=== PATIENT | female | born 1940 | race Caucasian/White ===

== ENCOUNTER 2016-02-28 15:51 | Inpatient (IN) | payer MEDICARE, BC ==
[~2016-02-28] VITALS: Ht 160 cm; Wt 47.0 kg
[2016-02-28] MEDS ORDERED: METHYLPRED SOD SUCC 125 MG/2 ML VIAL ONE (17:22)
[2016-02-28] MEDS ORDERED: DUONEB INH ONE ×3 (17:34)
[2016-02-28] MEDS ORDERED: SODIUM CHLORIDE 0.9% 100 ML IV ONE (19:14)
[2016-02-28] MEDS ORDERED: CEFTRIAXONE 1 GM VIAL ONE (19:14)
[2016-02-28] MEDS ORDERED: ONDANSETRON 4 MG VIAL IV PUSH PRN (20:30)
[2016-02-28] MEDS ORDERED: ACETAMINOPHEN 325 MG TAB PO PRN (20:30)
[2016-02-28 21:31] VITALS: BP_SYST 146; RESP 18; TEMP 98.5; Ht 160 cm; Wt 47.0 kg
[2016-02-28] MEDS: DUONEB INH SCH (23:10)
[2016-02-28 23:13] VITALS: RESP 18
[2016-02-29] MEDS: METHYLPRED SOD SUCC 125 MG/2 ML VIAL IV SCH ×4 (00:13→23:58)
[2016-02-29] MEDS: DUONEB INH SCH ×6 (02:07→22:33)
[2016-02-29] MEDS: ALPRAZOLAM 0.25 MG TAB PO PRN ×2 (02:25→21:27)
[2016-02-29 03:56] VITALS: BP_SYST 117; RESP 18; TEMP 97.7
[2016-02-29 08:20] VITALS: BP_SYST 133; RESP 18; TEMP 97.6
[2016-02-29] MEDS ORDERED: MISSING DOSE XX ONE (08:30)
[2016-02-29] MEDS: CEFTRIAXONE 1 GM in SODIUM CHLORIDE 0.9% 50 ML IV SCH (09:22)
[2016-02-29] MEDS ORDERED: TRAMADOL 50 MG TAB PO PRN (11:45)
[2016-02-29] MEDS: clonazePAM 0.5 MG TAB PO SCH ×2 (12:20→21:28)
[2016-02-29] MEDS: FEXOFENADINE 180 MG TAB PO SCH (12:20)
[2016-02-29] MEDS: BISOPROLOL 5 MG TAB PO SCH (12:20)
[2016-02-29 12:24] VITALS: BP_SYST 140; RESP 18; TEMP 97.7
[2016-02-29 16:41] VITALS: BP_SYST 113; RESP 18; TEMP 97.8
[2016-02-29 19:56] VITALS: BP_SYST 129; RESP 18; TEMP 97.7
[2016-02-29] MEDS: PANTOPRAZOLE 20 MG TAB PO SCH (21:28)
[2016-02-29 22:46] VITALS: BP_SYST 103; RESP 20; TEMP 97.6
[2016-03-01] VITALS (10 sets, daily range): BP systolic 89–125; RESP 14–28; TEMP 98–98.9
[2016-03-01] MEDS: DUONEB INH SCH ×4 (02:40→15:04)
[2016-03-01] MEDS: CEFTRIAXONE 1 GM in SODIUM CHLORIDE 0.9% 50 ML IV SCH (09:03)
[2016-03-01] MEDS: FEXOFENADINE 180 MG TAB PO SCH (09:03)
[2016-03-01] MEDS: METHYLPRED SOD SUCC 125 MG/2 ML VIAL IV SCH ×2 (09:03→20:40)
[2016-03-01] MEDS: BISOPROLOL 5 MG TAB PO SCH (09:03)
[2016-03-01] MEDS: clonazePAM 0.5 MG TAB PO SCH (09:03)
[2016-03-01] MEDS ORDERED: Furosemide 40 MG/4 ML VIAL IV ONE (11:20)
[2016-03-01] MEDS ORDERED: LORAZEPAM 2 MG/ML VIAL IV ONE (13:45)
[2016-03-01] MEDS: ALPRAZOLAM 0.25 MG TAB PO SCH (17:13)
[2016-03-01] MEDS: AZITHROMYCIN 500 MG in SODIUM CHLORIDE 0.9% 250 ML IV SCH (18:02)
[2016-03-01] MEDS: NEB-BROVANA 15 MCG/2 ML INH SCH (19:38)
[2016-03-01] MEDS: NEB-BUDESONIDE 0.5 MG INH SCH (19:39)
[2016-03-01] MEDS: NEB-XOPENEX 0.63 MG/3 ML INH SCH ×2 (19:39→22:55)
[2016-03-01] MEDS: PANTOPRAZOLE 20 MG TAB PO SCH (20:32)
[2016-03-01] MEDS: LORAZEPAM 2 MG/ML VIAL IV PRN (20:36)
[2016-03-01] MEDS ORDERED: THEOPHYLLINE 100 MG PO SCH (21:00)
[2016-03-02] VITALS (7 sets, daily range): BP systolic 126–157; RESP 20–23; TEMP 97–98.7
[2016-03-02] MEDS: ALPRAZOLAM 0.25 MG TAB PO SCH ×4 (00:41→20:58)
[2016-03-02] MEDS ORDERED: SALINE FLUSH 10 ML FLUSH PRN (05:50)
[2016-03-02] MEDS: SODIUM CHLORIDE 0.9% FLUSH BAG 500 ML IV SCH (05:53)
[2016-03-02] MEDS: MODAFINIL 100 MG TAB PO SCH ×2 (05:54→12:08)
[2016-03-02] MEDS: LORAZEPAM 2 MG/ML VIAL IV PRN (06:40)
[2016-03-02] MEDS: NEB-XOPENEX 0.63 MG/3 ML INH SCH ×5 (07:01→23:23)
[2016-03-02] MEDS: NEB-BROVANA 15 MCG/2 ML INH SCH ×2 (07:02→18:08)
[2016-03-02] MEDS: NEB-BUDESONIDE 0.5 MG INH SCH ×2 (07:02→18:08)
[2016-03-02] MEDS ORDERED: MISSING DOSE XX ONE (08:15)
[2016-03-02] MEDS: AZITHROMYCIN 500 MG in SODIUM CHLORIDE 0.9% 250 ML IV SCH (08:16)
[2016-03-02] MEDS: SALINE FLUSH 10 ML FLUSH SCH ×2 (08:16→20:00)
[2016-03-02] MEDS: THEOPHYLLINE SR 100 MG CAP PO SCH (08:57)
[2016-03-02] MEDS: FEXOFENADINE 180 MG TAB PO SCH (08:57)
[2016-03-02] MEDS: BISOPROLOL 5 MG TAB PO SCH (08:58)
[2016-03-02] MEDS: METHYLPRED SOD SUCC 125 MG/2 ML VIAL IV SCH (08:58)
[2016-03-02] MEDS: PANTOPRAZOLE 20 MG TAB PO SCH (20:58)
[2016-03-03] VITALS (8 sets, daily range): BP systolic 112–142; RESP 20–24; TEMP 97.3–98
[2016-03-03] MEDS: SODIUM CHLORIDE 0.9% FLUSH BAG 500 ML IV SCH (05:26)
[2016-03-03] MEDS: NEB-BROVANA 15 MCG/2 ML INH SCH ×2 (06:31→19:29)
[2016-03-03] MEDS: NEB-XOPENEX 0.63 MG/3 ML INH SCH ×5 (06:31→22:50)
[2016-03-03] MEDS: NEB-BUDESONIDE 0.5 MG INH SCH ×2 (06:31→19:29)
[2016-03-03] MEDS: MODAFINIL 100 MG TAB PO SCH ×2 (07:25→12:00)
[2016-03-03] MEDS: BISOPROLOL 5 MG TAB PO SCH (08:22)
[2016-03-03] MEDS: ALPRAZOLAM 0.25 MG TAB PO SCH ×3 (08:24→21:02)
[2016-03-03] MEDS: THEOPHYLLINE SR 100 MG CAP PO SCH (08:24)
[2016-03-03] MEDS: AZITHROMYCIN 500 MG in SODIUM CHLORIDE 0.9% 250 ML IV SCH (08:24)
[2016-03-03] MEDS: SALINE FLUSH 10 ML FLUSH SCH ×2 (08:24→21:03)
[2016-03-03] MEDS: FEXOFENADINE 180 MG TAB PO SCH (08:24)
[2016-03-03] MEDS ORDERED: PREDNISONE 20 MG TAB PO SCH (09:00)
[2016-03-03] MEDS: LORAZEPAM 2 MG/ML VIAL IV PRN (12:25)
[2016-03-03] MEDS: KCL CR 20 MEQ TAB PO SCH ×2 (17:43→21:02)
[2016-03-03] MEDS: PANTOPRAZOLE 20 MG TAB PO SCH (21:02)
[2016-03-03] MEDS: Docosanol 10% Cream 2 Gm TOPICAL SCH (21:03)
[2016-03-04] VITALS (10 sets, daily range): BP systolic 113–148; RESP 18–24; TEMP 97.4–98.5
[2016-03-04] MEDS: SODIUM CHLORIDE 0.9% FLUSH BAG 500 ML IV SCH (05:16)
[2016-03-04] MEDS: NEB-XOPENEX 0.63 MG/3 ML INH SCH ×5 (05:29→22:36)
[2016-03-04] MEDS: NEB-BROVANA 15 MCG/2 ML INH SCH ×2 (05:29→17:24)
[2016-03-04] MEDS: NEB-BUDESONIDE 0.5 MG INH SCH ×2 (05:29→17:24)
[2016-03-04] MEDS: MODAFINIL 100 MG TAB PO SCH ×2 (06:00→12:00)
[2016-03-04] MEDS: THEOPHYLLINE SR 100 MG CAP PO SCH (09:39)
[2016-03-04] MEDS: SALINE FLUSH 10 ML FLUSH SCH ×2 (09:39→20:48)
[2016-03-04] MEDS: AZITHROMYCIN 500 MG in SODIUM CHLORIDE 0.9% 250 ML IV SCH (09:39)
[2016-03-04] MEDS: BISOPROLOL 5 MG TAB PO SCH (09:40)
[2016-03-04] MEDS: FEXOFENADINE 180 MG TAB PO SCH (09:40)
[2016-03-04] MEDS: KCL CR 20 MEQ TAB PO SCH (09:40)
[2016-03-04] MEDS: PREDNISONE 20 MG TAB PO SCH (09:41)
[2016-03-04] MEDS: Docosanol 10% Cream 2 Gm TOPICAL SCH ×2 (09:41→20:49)
[2016-03-04] MEDS: ALPRAZOLAM 0.25 MG TAB PO SCH ×3 (09:41→20:49)
[2016-03-04] MEDS: PANTOPRAZOLE 20 MG TAB PO SCH (20:49)
[2016-03-05 03:30] VITALS: BP_SYST 123; RESP 19; TEMP 98.2
[2016-03-05] MEDS: SODIUM CHLORIDE 0.9% FLUSH BAG 500 ML IV SCH (05:08)
[2016-03-05] MEDS: MODAFINIL 100 MG TAB PO SCH ×2 (05:44→12:00)
[2016-03-05] MEDS: NEB-XOPENEX 0.63 MG/3 ML INH SCH ×4 (07:18→18:56)
[2016-03-05] MEDS: NEB-BROVANA 15 MCG/2 ML INH SCH ×2 (07:18→18:56)
[2016-03-05] MEDS: NEB-BUDESONIDE 0.5 MG INH SCH ×2 (07:18→18:56)
[2016-03-05 07:47] VITALS: TEMP 98.4
[2016-03-05 07:48] VITALS: BP_SYST 130; BP_SYST 132; RESP 20
[2016-03-05] MEDS: SALINE FLUSH 10 ML FLUSH SCH (09:38)
[2016-03-05] MEDS: THEOPHYLLINE SR 100 MG CAP PO SCH (09:38)
[2016-03-05] MEDS: ALPRAZOLAM 0.25 MG TAB PO SCH (09:38)
[2016-03-05] MEDS: FEXOFENADINE 180 MG TAB PO SCH (09:38)
[2016-03-05] MEDS: Docosanol 10% Cream 2 Gm TOPICAL SCH (09:39)
[2016-03-05] MEDS: BISOPROLOL 5 MG TAB PO SCH (09:39)
[2016-03-05] MEDS: PREDNISONE 20 MG TAB PO SCH (09:39)
[2016-03-05 11:04] VITALS: BP_SYST 145; RESP 18; TEMP 97.9
[2016-03-05 11:47] VITALS: BP_SYST 145; RESP 18; TEMP 97.9
== END 2016-03-05 05:11 | disposition home or self-care (01) | DRG 189 ==
LOC: ENRESERVDT → ENRESERVTM → ER 15:51 → EMR 19:30 → PCU2 21:01
PROVIDERS: ADMIT Internal Medicine Nephrology; ATTEND Internal Medicine Nephrology
CPT/HCPCS: 36600; 71010; 71020; 72100; 80048; 80053; 82803; 85025; 93005; 93306; 94640; 94660; 94762; 94799; 96365; 96375